=== PATIENT | female | born 1970 | race Native Hawaiian/Other Pacific Islander ===

== ENCOUNTER 2017-11-29 12:12 | Outpatient (CLI) | payer OTHER ==
[2017-11-29 12:59] LABS: PLATELET COUNT 318 K/uL (152-353)
== END 2017-11-29 19:41 | disposition home or self-care (01) ==
LOC: LABW 12:12
PROVIDERS: Physician Assistant Medical
DX: M79.7 Fibromyalgia (principal); Z86.73 Personal history of transient ischemic attack (TIA), and cerebral infarction without residual deficits; S82.892A Other fracture of left lower leg, initial encounter for closed fracture; D36.10 Benign neoplasm of peripheral nerves and autonomic nervous system, unspecified; I10 Essential (primary) hypertension; Z79.899 Other long term (current) drug therapy; X58.XXXA Exposure to other specified factors, initial encounter; Y93.89 Activity, other specified; Y92.89 Other specified places as the place of occurrence of the external cause
CPT/HCPCS: 36415; 80053; 83036; 84436; 84439; 84443; 84479; 85027

== ENCOUNTER 2017-11-29 12:50 | Emergency (ER) | payer OTHER ==
[~2017-11-29] VITALS: Ht 149.9 cm; Wt 26.8 kg
[2017-11-29 13:07] VITALS: TEMP 98.1
[2017-11-29 15:44] VITALS: BP 121/74
== END 2017-11-29 15:44 | disposition home or self-care (01) ==
LOC: ED 12:50
DX: S92.415A Nondisplaced fracture of proximal phalanx of left great toe, initial encounter for closed fracture (principal); W19.XXXA Unspecified fall, initial encounter; Y93.89 Activity, other specified; Y92.89 Other specified places as the place of occurrence of the external cause; N39.0 Urinary tract infection, site not specified; B96.5 Pseudomonas (aeruginosa) (mallei) (pseudomallei) as the cause of diseases classified elsewhere
CPT/HCPCS: 81000; 82150; 83690; 87077; 87086; 87088; 87186; 99283

== ENCOUNTER 2017-12-03 17:13 | Inpatient (IN) | payer OTHER ==
[~2017-12-03] VITALS: Ht 149.9 cm; Wt 35.9 kg
[2017-12-03 18:49] LABS: PLATELET COUNT 341 K/uL (152-353)
[2017-12-03 19:02] LABS: POTASSIUM 3.4 mmol/L (3.6-5.2)
[2017-12-04 00:19] VITALS: BP 91/62; TEMP 98.1; Ht 149.9 cm; Wt 35.9 kg
[2017-12-04 04:00] VITALS: BP 96/67; TEMP 97.5
[2017-12-04 04:25] LABS: PLATELET COUNT 297 K/uL (152-353)
[2017-12-04 04:41] LABS: POTASSIUM 3.9 mmol/L (3.6-5.2)
[2017-12-04 07:00] VITALS: BP 104/74; TEMP 97.3
[2017-12-04 12:00] VITALS: BP 106/75; TEMP 97.4
[2017-12-04 16:00] VITALS: BP 119/87; TEMP 97.9
[2017-12-04 20:00] VITALS: BP 121/83; TEMP 98
[2017-12-05] VITALS: BP 135/93; TEMP 97.7
[2017-12-05 04:00] VITALS: BP 162/93; TEMP 97.4
[2017-12-05 06:36] LABS: PLATELET COUNT 279 K/uL (152-353)
[2017-12-05 07:42] LABS: POTASSIUM 4.3 mmol/L (3.6-5.2)
[2017-12-05 08:03] VITALS: BP 101/71; TEMP 96.3
[2017-12-05 12:06] VITALS: BP 148/103; TEMP 98.1
[2017-12-05 16:00] VITALS: BP 181/100; TEMP 98.9
[2017-12-05 20:00] VITALS: BP 142/99; TEMP 98.5
[2017-12-06 04:00] VITALS: BP 145/97; TEMP 98.7
[2017-12-06 06:06] LABS: PLATELET COUNT 283 K/uL (152-353)
[2017-12-06 08:18] VITALS: BP 140/99; TEMP 97.6
[2017-12-06 11:55] VITALS: BP 138/97; TEMP 98.2
[2017-12-06 20:00] VITALS: BP 163/74; TEMP 98.9
== END 2017-12-06 23:00 | disposition home or self-care (01) | DRG 690 ==
LOC: MED/SURG 17:13
PROVIDERS: ADMIT Emergency Medicine
DX: N39.0 Urinary tract infection, site not specified (principal); E46 Unspecified protein-calorie malnutrition; B96.5 Pseudomonas (aeruginosa) (mallei) (pseudomallei) as the cause of diseases classified elsewhere; G89.29 Other chronic pain; Q85.02 Neurofibromatosis, type 2; I12.9 Hypertensive chronic kidney disease with stage 1 through stage 4 chronic kidney disease, or unspecified chronic kidney disease; N18.3 Chronic kidney disease, stage 3 (moderate); D64.89 Other specified anemias; S92.415A Nondisplaced fracture of proximal phalanx of left great toe, initial encounter for closed fracture; T24.112A Burn of first degree of left thigh, initial encounter; M79.7 Fibromyalgia; Z86.73 Personal history of transient ischemic attack (TIA), and cerebral infarction without residual deficits; S82.892A Other fracture of left lower leg, initial encounter for closed fracture; D36.10 Benign neoplasm of peripheral nerves and autonomic nervous system, unspecified; I10 Essential (primary) hypertension; Z79.899 Other long term (current) drug therapy; X58.XXXA Exposure to other specified factors, initial encounter; Y93.89 Activity, other specified; Y92.89 Other specified places as the place of occurrence of the external cause; W19.XXXA Unspecified fall, initial encounter
CPT/HCPCS: 36415; 36591; 80053; 81000; 82150; 83036; 83690; 83735; 84436; 84439; 84443; 84479; 85027; 86317; 86803; 87040; 87077; 87086; 87088; 87186; 87535; 96372; 99283; G0432; J1642; J1650; J1885; J2185; J3490

== ENCOUNTER 2019-02-04 22:51 | Emergency (ER) | payer OTHER ==
[~2019-02-04] VITALS: Ht 149.9 cm; Wt 35.8 kg
[2019-02-04] MEDS ORDERED: PERCOCET1 TA3 PO (23:02)
[2019-02-04] MEDS ORDERED: LISI20TA11 PO (23:02)
[2019-02-04] MEDS ORDERED: OXYCODONE30 MG PO (23:02)
[2019-02-04] MEDS ORDERED: LINZESS145 MCG PO (23:03)
[2019-02-04] MEDS ORDERED: GRALISE600 MG PO (23:03)
[2019-02-05 00:15] VITALS: BP 136/95; TEMP 97.6
== END 2019-02-05 00:15 | disposition home or self-care (01) ==
LOC: ED 22:51
DX: M54.2 Cervicalgia (principal); M54.89 Other dorsalgia; G89.29 Other chronic pain
CPT/HCPCS: 96374; 96375; 99284; J2175; J2405; J3490

== ENCOUNTER 2020-08-11 14:56 | Outpatient (CLI) | payer OTHER ==
[~2020-08-11 14:56] MED LIST: GRALISE600 MG PO; LINZESS145 MCG PO; LISI20TA11 PO; OXYCODONE30 MG PO; PERCOCET1 TA3 PO
== END 2020-08-11 22:00 | disposition home or self-care (01) ==
LOC: LAB 14:56
PROVIDERS: ATTEND Nurse Practitioner Family
DX: N39.0 Urinary tract infection, site not specified (principal); R30.0 Dysuria
CPT/HCPCS: 81000